=== PATIENT | female | born 1990 | race Caucasian/White ===

== ENCOUNTER 2017-04-22 18:59 | Outpatient (CLI) | payer OTHER ==
[~2017-04-22] VITALS: Ht 180.3 cm; Wt 126.4 kg
[2017-04-22 19:51] LABS: URINE APPEARANCE CLEAR (CLEAR); URINE BILIRUBIN NEG (NEG); URINE COLOR YELLOW; URINE EPITHELIAL CELL AUTO 20-30 /lpf (0-5); URINE NITRITE NEG (NEG); URINE PH 5.5 (4.5-7.5); URINE SPECIFIC GRAVITY 1.018 (1.000-1.030); UROBILINOGEN NEG (NEG)
[2017-04-22 19:56] LABS: MANUAL MICROSCOPIC REQUIRED? NO; REVIEW REQ? NO
[2017-04-22 20:05] LABS: HEMATOCRIT 34.6 % (37-47); MEAN CELL VOLUME 87.4 fL (80-100); MEAN CORPUSCULAR HEMOGLOBIN 29.3 pg (25-34); MEAN PLATELET VOLUME 10.9 fL (7.4-10.4); PLATELET COUNT 194 K/uL (130-400); RED BLOOD COUNT 3.96 M/uL (4.2-5.4); WHITE BLOOD COUNT 13.43 K/uL (4.8-10.8)
[2017-04-22 20:09] LABS: MEAN CORPUSCULAR HGB CONC 33.5 g/dl (32-36)
[2017-04-22 20:17] LABS: URINE TOTAL PROTEIN 7.2 mg/dl (0-11.9)
[2017-04-22 20:19] LABS: ALT/SGPT 10 U/L (12-78); AST/SGOT 10 U/L (15-37); CREATININE 0.62 mg/dl (0.60-1.20)
[2017-04-22 20:32] LABS: URIC ACID 5.3 mg/dl (2.6-7.2)
[2017-04-22 20:45] LABS: URINE PROTIEN/CREAT RATIO 0.1 (0-0.2)
[2017-04-22] MEDS ORDERED: PRENTAB26 PO (20:57)
[2017-04-22] MEDS ORDERED: VALA500T60 PO (20:57)
[2017-04-22 21:02] LABS: BENZODIAZEPINE, URINE NEG (NEG); COCAINE,URINE NEG (NEG); PHENCYCLIDINE, URINE NEG (NEG)
--- NOTE | 2017-04-22 21:09 | Discharge Instructions ---
Discharge Instructions Date of Service Apr 22, 2017. Admission Reason for Admission: Check Labor Discharge Discharge Diagnosis / Problem: with limited care Discharge Goals Goal(s): Continuing OB care Activity Recommendations Activity Limitations: resume your previous activity . Instructions / Follow-Up Instructions / Follow-Up Call the [facility] – [place] office on Monday morning early (9:00am or thereabouts) at . Please ask for an appointment in the next week. Current Hospital Diet Patient's current hospital diet: Regular OB Diet Discharge Diet Recommended Diet: Regular Diet Pending Studies Studies pending at discharge: no Laboratory Results Test 04/22/17 19:25 04/22/17 19:50 04/22/17 20:33 04/22/17 21:05 Urine Color YELLOW Urine Appearance CLEAR Urine pH 5.5 Urine Specific [place] 1.018 Urine Protein NEG Urine Glucose (UA) NEG Urine Ketones NEG Urine Occult Blood 2+ Urine Nitrite NEG Urine Bilirubin NEG Urine Urobilinogen NEG Urine Leukocyte Esterase NEG Urine WBC (Auto) 1-5 Urine RBC (Auto) 5-10 Urine Hyaline Casts (Auto) 1-5 Urine Epithelial Cells (Auto) 20-30 Urine Bacteria (Auto) NEG Urine Random Creatinine 74.0 Urine Random Total Protein 7.2 Urine Protein/Creatinine Ratio 0.1 Urine Opiates Screen NEG Urine Methadone, Qualitative NEG Urine Barbiturates NEG Urine Phencyclidine (PCP) Level NEG Ur Amphetamine/Methamphetamine NEG MDMA (Ecstasy) Screen NEG Urine Benzodiazepines Screen NEG Urine Cocaine Metabolite NEG Urine Marijuana (THC) NEG White Blood Count 13.43 Red Blood Count 3.96 Hemoglobin 11.6 Hematocrit 34.6 Mean Corpuscular Volume 87.4 Mean Corpuscular Hemoglobin 29.3 Mean Corpuscular Hemoglobin Concent 33.5 RDW Standard Deviation 44.6 RDW Coefficient of Variation 13.9 Platelet Count 194 Mean Platelet Volume 10.9 Creatinine 0.62 Estimated GFR () 144.2 Estimated GFR (Non- 124.4 Uric Acid 5.3 Aspartate Amino Transferase (AST) 10 Alanine Aminotransferase (ALT) 10 Lactate Dehydrogenase 150 Thyroid Stimulating Hormone (TSH) Pending Chlamydia trachomatis RNA Pending Neisseria gonorrhoeae RNA Pending Rapid Plasma Reagin Pending Hepatitis B Surface Antigen Pending HIV (1&2) Ab and P24 Ag, 4th Gener Pending Rubella IgG Antibody Pending Medical Emergencies . Who to Call and When: Medical Emergencies: If at any time you feel your situation is an emergency, please call 911 immediately. . Non-Emergent Contact Non-Emergency issues call your: Primary Care Provider . . "Provider Documentation" section prepared by Faith Solis. . VTE Core Measure Inpt VTE Proph given/why not?: Treatment not indicated
[2017-04-22 21:32] VITALS: Ht 180.3 cm; Wt 126.4 kg
[2017-04-26 00:44] LABS: CHLAMYDIA TRACH RNA*** NOT DETECTED (NOT DETECTED); GC (NEIS GONORRHOEAE)RNA** NOT DETECTED (NOT DETECTED)
== END 2017-04-22 21:20 | disposition home or self-care (01) ==
LOC: C.OPB 18:59 → C.LD 18:59 → C.OPB 21:20
PROVIDERS: ATTEND Obstetrics & Gynecology
DX: O09.33 Supervision of pregnancy with insufficient antenatal care, third trimester (principal); O99.283 Endocrine, nutritional and metabolic diseases complicating pregnancy, third trimester; E03.9 Hypothyroidism, unspecified; O99.213 Obesity complicating pregnancy, third trimester; Z3A.39 39 weeks gestation of pregnancy

== ENCOUNTER 2017-04-28 11:40 | Outpatient (CLI) | payer OTHER ==
[~2017-04-28 11:40] MED LIST: PRENTAB26 PO; VALA500T60 PO
== END 2017-04-28 12:45 | disposition short-term general hospital (02) ==
LOC: C.LD 11:40 → C.OPB 11:40
PROVIDERS: ATTEND Obstetrics & Gynecology
DX: O36.8990 Maternal care for other specified fetal problems, unspecified trimester, not applicable or unspecified (principal); Z3A.00 Weeks of gestation of pregnancy not specified

== ENCOUNTER → 2017-07-27 | Outpatient (CLI) | payer OTHER ==
[2017-07-27 18:00] LABS: BASO % 0.3 %; BASO ABS # 0.03 K/uL (0-0.2); EOS % 2.4 %; EOS ABS # 0.28 K/uL (0-0.5); HEMATOCRIT 43.1 % (37-47); HEMOGLOBIN 14.3 g/dL (12.0-16.0); IG# 0.03 K/uL (0.00-0.02); LYMPH ABS # 3.71 K/uL (1.2-3.4); MEAN CELL VOLUME 86.7 fL (80-100); MEAN CORPUSCULAR HEMOGLOBIN 28.8 pg (25-34); MEAN CORPUSCULAR HGB CONC 33.2 g/dl (32-36); MEAN PLATELET VOLUME 11.5 fL (7.4-10.4); MONO % 5.5 %; MONO ABS # 0.64 K/uL (0.11-0.59); NEUT % 59.5 %; NEUT ABS # 6.89 K/uL (1.4-6.5); PLATELET COUNT 275 K/uL (130-400); RED CELL DISTRIBUTION WIDTH CV 13.9 % (11.5-14.5); RED CELL DISTRIBUTION WIDTH SD 43.8 fL (36.4-46.3); WHITE BLOOD COUNT 11.58 K/uL (4.8-10.8)
[2017-07-27 18:30] LABS: BLOOD UREA NITROGEN 10 mg/dl (7-18); CARBON DIOXIDE 25 mmol/L (21-32); CREATININE 0.73 mg/dl (0.60-1.20); GLUCOSE 93 mg/dl (70-99); SODIUM 137 mmol/L (136-145)
== END | disposition home or self-care (01) ==
LOC: C.LABPVFM 14:10
PROVIDERS: ATTEND Family Medicine
DX: F17.200 Nicotine dependence, unspecified, uncomplicated (principal)

== ENCOUNTER 2017-10-30 03:00 | Emergency (ER) | payer OTHER ==
[~2017-10-30] VITALS: Ht 180.3 cm; Wt 130.5 kg
[2017-10-30 03:02] VITALS: TEMP 36.8; Ht 180.3 cm; Wt 130.5 kg
[2017-10-30] MEDS ORDERED: PROCHLORPERAZINE 5 MG/ML 2 ML VIAL IV STA (03:25)
[2017-10-30] MEDS ORDERED: DiphenhydrAMINE HCL 50 MG/ML VIAL IV STA (03:25)
[2017-10-30] MEDS ORDERED: ACETAMINOPHEN IV 1,000 MG in EMPTY BAG 0 ML IV ONE (03:30)
[2017-10-30] MEDS ORDERED: ACETAMINOPHEN 1000 MG/100 ML IV IV ONE (03:31)
[2017-10-30] MEDS ORDERED: MULT-726 PO (03:44)
[2017-10-30] MEDS ORDERED: OPTIRAY 320 IV PRN (03:45)
[2017-10-30 03:50] LABS: BASO % 0.2 %; BASO ABS # 0.03 K/uL (0-0.2); EOS % 1.6 %; EOS ABS # 0.27 K/uL (0-0.5); HEMATOCRIT 42.8 % (37-47); HEMOGLOBIN 14.1 g/dL (12.0-16.0); IG# 0.04 K/uL (0.00-0.02); LYMPH % 21.6 %; LYMPH ABS # 3.56 K/uL (1.2-3.4); MEAN CELL VOLUME 82.1 fL (80-100); MEAN CORPUSCULAR HEMOGLOBIN 27.1 pg (25-34); MEAN CORPUSCULAR HGB CONC 32.9 g/dl (32-36); MEAN PLATELET VOLUME 10.6 fL (7.4-10.4); MONO % 7.3 %; NEUT % 69.1 %; NEUT ABS # 11.38 K/uL (1.4-6.5); PLATELET COUNT 312 K/uL (130-400); RED CELL DISTRIBUTION WIDTH SD 42.2 fL (36.4-46.3); WHITE BLOOD COUNT 16.48 K/uL (4.8-10.8)
[2017-10-30 04:08] LABS: ALBUMIN 3.7 gm/dl (3.4-5.0); CALCIUM 9.1 mg/dl (8.5-10.1); CREATININE 0.86 mg/dl (0.60-1.20); POTASSIUM 3.6 mmol/L (3.5-5.1)
[2017-10-30 04:11] LABS: TOTAL PROTEIN 7.7 gm/dl (6.4-8.2)
[2017-10-30] MEDS ORDERED: MAGNESIUM CITRATE 296 ML/BTL PO ONE (06:30)
[2017-10-30 06:31] VITALS: BP 143/76; PULSE 88; O2SAT 96
--- NOTE | 2017-10-31 00:22 | EMERGENCY ROOM VISIT NOTE ---
History First contact with patient: 03:10 Chief Complaint: ABDOMINAL PAIN Stated Complaint: ABD PAIN Nursing Triage Summary: Patient reports that she woke with nausea and pain at midnight, pain did not improve and has gotten worse. Patient notes that pain is mid to right abdomen History of Present Illness The patient is a 27 year old female who presents to the Emergency Room with complaints of very umbilical abdominal pain that worsened about 3 hours ago. The patient states the pain does radiate minimally off to the right side of her abdomen. The patient states that she put her child to bed, and went to lay down when her symptoms began. She states that her pain is dull and constant. She is nauseated but has not vomited. The patient does not report fever or chills. No difficulty breathing or discomfort in her chest. She denies chance of . She has not taken anything [id number] for her discomfort which she currently rates a 7/10. Review of Systems More than 10 systems were reviewed and otherwise negative with the exception of history of present illness. Past Medical/Surgical History Medical Problems: (1) Bronchitis (2) Drug abuse (3) cardiac anomaly affecting , antepartum (4) History of - miscarriage Family History No pertinent family history Social History Smoking Status: Current Every Day Smoker Alcohol Use: occasionally Drug Use: other Marital Status: Occupation Status: unemployed Current/Historical Medications Scheduled Multiple Vitamins W/ Minerals (Th[employer] Womens), 1 DOSE PO DAILY Physical Exam Vital Signs Date Time Temp Pulse Resp B/P (MAP) Pulse Ox O2 Delivery O2 Flow Rate FiO2 10/30/17 06:31 88 18 143/76 96 Room Air 10/30/17 05:46 76 18 115/72 96 Room Air 10/30/17 04:58 71 17 122/67 97 Room Air 10/30/17 03:02 36.8 89 18 143/99 98 Room Air Physical Exam VITALS: Vitals are noted on the nurse's note and reviewed by myself. Vital signs stable. GENERAL: Well-developed, well-nourished, white female, who is in no acute distress and resting comfortably. Patient is cooperative with the examination. MOUTH: Mucous membranes moist. Tonsils are not enlarged. Pharynx without erythema, blood, or exudate. Uvula midline. Airway patent. NECK: Supple without nuchal rigidity. No lymphadenopathy. No thyromegaly. Cervical spine is nontender. HEART: Regular rate and rhythm without murmurs gallops or rubs. LUNGS: Clear to auscultation bilaterally without wheezes, rales or rhonchi. No retractions or accessory muscle use. ABDOMEN: Positive normal bowel sounds x 4. Soft with mild tenderness just to the right of the umbilicus. No rebound or guarding. No CVA tenderness. MUSCULOSKELETAL: No muscle atrophy, erythema, or edema noted. Full range of motion in all extremities. No tenderness to palpation. Medical Decision & Procedures ER Provider Diagnostic Interpretation: Preliminary Findings Only See Final Report For Complete Findings CT ABDOMEN & PELVIS With Contrast: Normal appendix. No small bowel obstruction. No free air or free fluid or fluid collections. Increased fecal burden. Distended stomach with retained gastric contents. No radiopaque gallstones. No pancreatitis or pyelonephritis. No hydronephrosis. Normal caliber abdominal aorta. No adnexal cysts or masses. Laboratory Results 10/30/17 03:40 Red Blood Count 5.21, Mean Corpuscular Volume 82.1, Mean Corpuscular Hemoglobin 27.1, Mean Corpuscular Hemoglobin Concent 32.9, Mean Platelet Volume 10.6, Neutrophils (%) (Auto) 69.1, Lymphocytes (%) (Auto) 21.6, Monocytes (%) (Auto) 7.3, Eosinophils (%) (Auto) 1.6, Basophils (%) (Auto) 0.2, Neutrophils # (Auto) 11.38, Lymphocytes # (Auto) 3.56, Monocytes # (Auto) 1.20, Eosinophils # (Auto) 0.27, Basophils # (Auto) 0.03 10/30/17 03:40 Test 10/30/17 03:30 10/30/17 03:40 Urine Color YELLOW Urine Appearance CLEAR (CLEAR) Urine pH 5.5 (4.5-7.5) Urine Specific [place] 1.024 (1.000-1.030) Urine Protein NEG (NEG) Urine Glucose (UA) NEG (NEG) Urine Ketones NEG (NEG) Urine Occult Blood NEG (NEG) Urine Nitrite NEG (NEG) Urine Bilirubin NEG (NEG) Urine Urobilinogen NEG (NEG) Urine Leukocyte Esterase NEG (NEG) Urine Test NEG (NEG) Urine Opiates Screen NEG (NEG) Urine Methadone, Qualitative NEG (NEG) Urine Barbiturates NEG (NEG) Urine Phencyclidine (PCP) Level NEG (NEG) Ur Amphetamine/Methamphetamine NEG (NEG) MDMA (Ecstasy) Screen NEG (NEG) Urine Benzodiazepines Screen NEG (NEG) Urine Cocaine Metabolite NEG (NEG) Urine Marijuana (THC) NEG (NEG) White Blood Count 16.48 K/uL (4.8-10.8) Red Blood Count 5.21 M/uL (4.2-5.4) Hemoglobin 14.1 g/dL (12.0-16.0) Hematocrit 42.8 % (37-47) Mean Corpuscular Volume 82.1 fL (80-100) Mean Corpuscular Hemoglobin 27.1 pg (25-34) Mean Corpuscular Hemoglobin Concent 32.9 g/dl (32-36) Platelet Count 312 K/uL (130-400) Mean Platelet Volume 10.6 fL (7.4-10.4) Neutrophils (%) (Auto) 69.1 % Lymphocytes (%) (Auto) 21.6 % Monocytes (%) (Auto) 7.3 % Eosinophils (%) (Auto) 1.6 % Basophils (%) (Auto) 0.2 % Neutrophils # (Auto) 11.38 K/uL (1.4-6.5) Lymphocytes # (Auto) 3.56 K/uL (1.2-3.4) Monocytes # (Auto) 1.20 K/uL (0.11-0.59) Eosinophils # (Auto) 0.27 K/uL (0-0.5) Basophils # (Auto) 0.03 K/uL (0-0.2) RDW Standard Deviation 42.2 fL (36.4-46.3) RDW Coefficient of Variation 14.0 % (11.5-14.5) Immature Granulocyte % (Auto) 0.2 % Immature Granulocyte # (Auto) 0.04 K/uL (0.00-0.02) Anion Gap 8.0 mmol/L (3-11) Est Creatinine Clear Calc Drug Dose 146.8 ml/min Estimated GFR () 107.3 Estimated GFR (Non- 92.6 BUN/Creatinine Ratio 24.5 (10-20) Calcium Level 9.1 mg/dl (8.5-10.1) Total Bilirubin 0.4 mg/dl (0.2-1) Aspartate Amino Transf (AST/SGOT) 16 U/L (15-37) Alanine Aminotransferase (ALT/SGPT) 28 U/L (12-78) Alkaline Phosphatase 109 U/L (45-117) Total Protein 7.7 gm/dl (6.4-8.2) Albumin 3.7 gm/dl (3.4-5.0) Globulin 4.0 gm/dl (2.5-4.0) Albumin/Globulin Ratio 0.9 (0.9-2) Lipase 109 U/L (73-393) Medications Administered Medications (Trade) Dose Ordered Sig/Jim Route Start Time Stop Time Status Last Admin Dose Admin Acetaminophen 1000 mg/Empty Bag 100 ml @ 400 mls/hr NOW ONCE IV 10/30/17 03:30 10/30/17 03:44 DC 10/30/17 03:39 400 MLS/HR Diphenhydramine HCl (Benadryl Inj) 50 mg NOW STAT IV 10/30/17 03:25 10/30/17 03:27 DC 10/30/17 03:38 50 MG Prochlorperazine Edisylate (Compazine Inj) 10 mg NOW STAT IV 10/30/17 03:25 10/30/17 03:27 DC 10/30/17 03:38 10 MG Magnesium Citrate (Citrate Of Magnesia Soln) 296 ml NOW ONCE PO 10/30/17 06:30 10/30/17 06:31 DC 10/30/17 06:41 296 ML ED Course Physical exam and history were performed. Nursing notes, EMR, and Medication List were personally reviewed. Patient appears to have right-sided abdominal pain that began acutely tonight. On examination the patient does have some mild right-sided tenderness. IV access was established and labs were obtained. The patient was hydrated and medicated as above. CT scan with IV and oral contrast was started. The patient's blood work is as above and was reviewed. She does have an elevated white blood cell count of greater than 16,000. She does not have a significant anemia or gross electrolyte imbalance. Lipase and transaminases are not diagnostic. Urine is without evidence of infection. She is not . CT scan is as above and reviewed by myself and radiology. The patient does not appear to have an acute surgical abdominal process. She does have a large amount of stool, and this certainly could be contributing to her symptoms. On repeat evaluation the patient was sleeping very comfortably in her ER bed. She had significant improvement of her discomfort after medication and hydration here. I discussed options of care with the patient and did offer an enema as this may be contributing to her symptoms. The patient voiced a preference in trying magnesium citrate at home, which appears reasonable. The patient is to follow very closely with her primary care physician in the next 1- 2 days for recheck. She was otherwise invited back to the ER with any new, worsening, or concerning symptoms. The chart was completed utilizing [employer] Speech Voice Recognition Software. Grammatical errors, random word insertions, pronoun errors, and incomplete sentences are an occasional consequence of this system due to software limitations, ambient noise, and hardware issues. Any formal questions or concerns about the content, text, or information contained within the body of this dictation should be directly addressed to the provider for clarification. . Medical Decision Differential diagnosis: Etiologies such as appendicitis, diverticulitis, PUD, biliary pathology, UTI, pancreatitis, obstruction, mesenteric ischemia, aortic pathology, infections, inflammatory bowel disease, renal colic, as well as others were entertained. Impression Primary Impression: Abdominal pain Additional Impression: Constipation Departure Information Dispostion Home / Self-Care Condition GOOD Forms HOME CARE DOCUMENTATION FORM, IMPORTANT VISIT INFORMATION Patient Instructions My [facility] Additional Instructions You were seen and evaluated today on an emergency basis only. This is not a substitute for, or an effort to provide, complete comprehensive medical care. It is not possible to recognize and treat all injuries or illnesses in a single emergency department visit. For this reason it is recommended that you followup with your primary care physician in the next 1-2 days for recheck. Drink plenty of fluids and remain well-hydrated. Consider using magnesium citrate at home today. Drink the bottle over the course of 1 hour. This will help produce a bowel movement. You should be taking a daily stool softener such as Colace You are welcome to return to the emergency department anytime with new, worsening, or concerning symptoms. Problem Qualifiers
--- NOTE | 2017-10-31 07:16 | DIAGNOSTIC IMAGING REPORT ---
CT ABD/PELVIS IV AND ORAL CONT CLINICAL HISTORY: Right-sided abdominal pain, nausea, vomiting. COMPARISON STUDY: 10/07/2012 TECHNIQUE: Following the IV administration of 93 mL of [id number]-320, CT scan of the abdomen and pelvis was performed from the lung bases to the proximal femurs. Images are reviewed in the axial, sagittal, and coronal planes. IV contrast was administered without complication. A dose lowering technique was utilized adhering to the principles of ALARA. CT DOSE: 1606.87 mGy.cm FINDINGS: Lower chest: The heart is normal in size and configuration, without pericardial effusion. The lung bases and pleural spaces are clear. Liver: The contrast-enhanced liver is normal in size, contour, and attenuation. There is no intrahepatic biliary ductal dilatation. The hepatic veins and portal veins are patent. Gallbladder: Unremarkable. Spleen: Spleen is mildly enlarged measuring 14.6 cm. Pancreas: Unremarkable. Adrenal glands: Unremarkable. Kidneys: There is symmetric renal cortical enhancement. The kidneys are normal in size without hydronephrosis. Bowel: There are no transition zones indicate bowel obstruction. There is no evidence of acute diverticulitis. The appendix is felt to be normal. Peritoneum: There is no intraperitoneal free air or abdominal ascites. Vasculature: The abdominal aorta is normal in course and caliber. Adenopathy: There are a few mildly prominent ileocolic lymph nodes, likely reactive. Pelvic viscera: The bladder, and pelvic viscera are unremarkable. There is a right pelvic basin calcification likely representing a phlebolith given the lack of associated hydroureter. Skeletal structures: No destructive osseous lesions are seen. IMPRESSION: 1. No evidence of bowel obstruction. No evidence of free air 2. Mild splenomegaly 3. Normal appendix. No evidence of acute diverticulitis. Electronically signed by: Casper Laboy M.D. 10/30/2017 6:34 AM Dictated Date/Time: 10/30/2017 6:29 AM
== END 2017-10-30 06:50 | disposition home or self-care (01) ==
LOC: C.EDB 03:01
DX: K59.00 Constipation, unspecified (principal); D72.829 Elevated white blood cell count, unspecified; F17.200 Nicotine dependence, unspecified, uncomplicated

== ENCOUNTER 2020-04-07 15:38 | Inpatient (IN) ==
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
[2020-04-07 16:18] LABS: Basophils # (auto) 0.01 K/uL (0-0.2); Basophils % (auto) 0.1 %; Eosinophils # (auto) 0.04 K/uL (0-0.5); Eosinophils % (auto) 0.4 %; Hematocrit (blood only) 35.6 % (37-47); Hemoglobin 11.7 g/dL (12.0-16.0); Immature Granulocytes # (auto) 0.04 K/uL (0.00-0.02); Immature Granulocytes % (auto) 0.4 %; Lymphocytes % (auto) 18.2 %; Mean Corpuscular Hemoglobin 27.8 pg (25-34); Mean Corpuscular Hgb Conc 32.9 g/dL (32-36); Mean Corpuscular Volume 84.6 fL (80-100); Mean Platelet Volume 10.8 fL (7.4-10.4); Monocytes # (auto) 0.67 K/uL (0.11-0.59); Monocytes % (auto) 6.1 %; Neutrophils # (auto) 8.24 K/uL (1.4-6.5); Neutrophils % (auto) 74.8 %; Platelet Count 223 K/uL (130-400); RDW Coefficient of Variation 14.9 % (11.5-14.5); RDW Standard Deviation 45.8 fL (36.4-46.3); Red Blood Count 4.21 M/uL (4.2-5.4)
[2020-04-07 16:30] LABS: Appearance Urine Clear (Clear); Bacteria Urine Automated 1+ (Negative); Bilirubin Urine Negative (Negative); Blood Urine Negative (Negative); Color Urine Dark Yellow; Epithelial Cell Urine Auto >30 /lpf (0-5); Glucose Urine UA Negative (Negative); Ketones Urine Trace (Negative); Leukocyte Esterase Urine Trace (Negative); Nitrite Urine Negative (Negative); Protein Urine Negative (Negative); RBC Urine Automated 0-4 /hpf (0-4); Specific Gravity Urine 1.024 (1.000-1.030); Urobilinogen Urine Negative (Negative)
[2020-04-07 16:34] LABS: Alanine Aminotransferase 11 U/L (12-78); Albumin Level 2.7 gm/dl (3.4-5.0); Aspartate Aminotransferase 11 U/L (15-37); BUN Creatinine Ratio 10.5 (10-20); Blood Urea Nitrogen 7 mg/dl (7-18); Calcium 9.4 mg/dl (8.5-10.1); Carbon Dioxide 19 mmol/L (21-32); Chloride 108 mmol/L (98-107); Est GFR (African American) 137.7; Est GFR (Non-African American) 118.8; Glucose 114 mg/dl (70-99); Magnesium 1.9 mg/dl (1.8-2.4); Partial Thromboplastin Ratio 0.9; Partial Thromboplastin Time 23.9 Seconds (21.0-31.0); Potassium 3.8 mmol/L (3.5-5.1); Prothrombin Time 10.3 Seconds (9.0-12.0); Sodium 138 mmol/L (136-145)
[2020-04-07 16:40] LABS: Albumin Globulin Ratio 0.6 (0.9-2); Alkaline Phosphatase 83 U/L (45-117); Bilirubin,Total 0.4 mg/dl (0.2-1); Globulin 4.3 gm/dl (2.5-4.0); NT Pro B Type Natriuretic Pept 32 pg/ml (0-450); Troponin I < 0.015 ng/ml (0-0.045)
[2020-04-07 17:08] LABS: D Dimer 1920 ug/L FEU (0-500)
[2020-04-07] MEDS ORDERED: ACETAMINOPHEN 500 MG TAB PO STA (17:31)
--- NOTE | 2020-04-07 18:10 | Ultrasound Report ---
ULTRASOUND BILATERAL LOWER EXTREMITY VENOUS CLINICAL HISTORY: Elevated d-dimer. COMPARISON STUDY: Bilateral lower extremity venous ultrasound dated 03/10/2011. TECHNIQUE: Real-time, grayscale, and color Doppler sonography of the deep veins of the right and left lower extremity was performed from the inguinal crease to the calf. Compression and augmentation wer e utilized. FINDINGS: There is no sonographic evidence of deep venous thrombosis identified in the right or left lower extremity. The common femoral, superficial femoral, and popliteal veins are patent and normally compressible bilaterally. The greater saphenous vein and the profunda femoris vein at the junction w ith the common femoral vein are clear in both legs. The visualized calf veins are patent bilaterally. IMPRESSION: There is no sonographic evidence of deep venous thrombosis identified in the right or lef t lower extremity. ACT 112: Negative or not required by law. Electronically signed by: Lucian Dutton M.D. 04/07/2020 6:09 PM
[2020-04-07] MEDS ORDERED: OPTIRAY 320 125ml IV ONE (18:19)
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
--- NOTE | 2020-04-07 20:17 | CT Scan Report ---
CT ANGIOGRAM OF THE CHEST CLINICAL HISTORY: Dyspnea. . Elevated d-dimer. COMPARISON STUDY: Chest x-ray dated 03/27/2018. Chest CT dated 10/06/2012. TECHNIQUE: Following the IV administration of 119 cc of Optiray 320, CT angiogram of the chest was pe rformed from the upper abdomen to the thoracic inlet utilizing the pulmonary embolus protocol. Images are reviewed in the axial, sagittal, and coronal planes. 3-D MIPS images are created and assessed. I V contrast was administered without complication. A dose lowering technique was utilized adhering to the principles of ALARA. The patient was scanned while as deemed medically necessary by the referring clinician. CT DOSE: 936.86 mGy.cm FINDINGS: Thyroid: Imaged portions of the thyroid gland are normal in size and attenuation. Thoracic aorta: The thoracic aorta is normal in caliber and demonstrates standard 3-vessel arch anato my. No dissection is seen. Pulmonary vasculature: The pulmonary trunk is normal in caliber. There is no contrast opacification o f the pulmonary arteries. Pulmonary embolus cannot be excluded. Heart: The heart is normal in size and without pericardial effusion. Lungs and pleural spaces: The lungs and pleural spaces are clear. Mediastinum: There is no mediastinal lymphadenopathy. Anushka: Clear. Axillae: There is no axillary lymphadenopathy. Upper abdomen: Partially visualized upper abdominal viscera is within normal limits. Skeletal structures: No lytic or blastic bony lesions are seen. IMPRESSION: 1. There is no contrast opacification of the pulmonary arteries. Pulmonary embolus cannot be excluded . 2. The lungs are clear. ACT 112: Negative or not required by law. Electronically signed by: Lucian Dutton M.D. 04/07/2020 8:16 PM
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
[2020-04-08] MEDS ORDERED: GLUCOSE 10 TABS/TUBE PO PRN (00:31)
[2020-04-08] MEDS ORDERED: DEXTROSE 50% 50 ML SYRINGE IV PRN (00:31)
[2020-04-08] MEDS ORDERED: GLUCAGON FOR INJ 1 MG VIAL SQ PRN (00:31)
[2020-04-08] MEDS ORDERED: GLUCOSE 40% GEL 15 GM TUBE PO PRN (00:31)
[2020-04-08] MEDS ORDERED: ACETAMINOPHEN 500 MG TAB PO PRN (00:31)
[2020-04-08] MEDS ORDERED: CARBOHYDRATES FOR HYPOGLYCEMIA PO PRN (00:31)
--- NOTE | 2020-04-08 06:14 | Electrocardiogram Report ---
Test Reason : Blood Pressure : / mmHG Vent. Rate : 096 BPM Atrial Rate : 096 BPM P-R Int : 150 ms QRS Dur : 082 ms QT Int : 344 ms P-R-T Axes : 052 008 038 degrees QTc Int : 434 ms Poor data quality, interpretation may be adversely affected Normal sinus rhythm Normal ECG When compared with ECG of 14-JUN-2019 13:56, Questionable change in QRS axis Confirmed by Joel Dumas ([id number]) on 04/08/2020 6:14:15 AM Referred By: ER Confirmed By:Joel Dumas
--- NOTE | 2020-04-08 08:25 | Obstetrical Progress Note ---
Date of Service Patient feels well this morning she's having no contractions no leakage of fluid she is not having any obstetrical concern she states hepatient feels well this morning she's having no contractions no leakage of fluid she is not having any obstetrical concern she states her baby is active nonstress test are being done every four hoursr baby I spoke with Dr. Farr we discussed possibly repeating ct scan I will obviously leave that judgment up to the medical team at this stage, as we have not ruled out a pulmonary embolus will continue to monitor her mother and baby from an aesthetic standpoint April 08, 2020 Assessment & Plan Admission and Anticipated Discharge Date Admission Date: April 07, 2020 Results & Data ([facility]) Vital Signs (Past 12 Hours) Vital Signs Temp Pulse Pulse Resp BP BP BP 04/08/20 07:53 98.4 F 95 H 18 138/85 04/08/20 03:31 98.2 F 90 20 131/76 04/08/20 00:18 92 H 04/08/20 00:16 97.9 F 103 H 22 139/87 04/07/20 23:56 102 H 25 H 130/80 04/07/20 23:00 102 H 25 H 04/07/20 22:30 101 H 25 H 04/07/20 22:00 102 H 25 H 04/07/20 21:34 101 H 04/07/20 21:00 93 H 18 04/07/20 20:40 101 H 19 Pulse Ox 04/08/20 07:53 99 04/08/20 03:31 96 04/08/20 00:18 04/08/20 00:16 96 04/07/20 23:56 98 04/07/20 23:00 04/07/20 22:30 04/07/20 22:00 04/07/20 21:34 04/07/20 21:00 04/07/20 20:40 PG Care Time/CCT Total # of Minutes Spent Total Time Spent with Patient: Total time spent is greater than 50% in coordination of care (as documented) at patient's floor/unit and/or counseling patient: Coding Level of Care Code None
[2020-04-08 08:44] LABS: Basophils # (auto) 0.01 K/uL (0-0.2); Basophils % (auto) 0.1 %; Eosinophils # (auto) 0.06 K/uL (0-0.5); Eosinophils % (auto) 0.5 %; Hematocrit (blood only) 35.8 % (37-47); Hemoglobin 11.4 g/dL (12.0-16.0); Immature Granulocytes # (auto) 0.04 K/uL (0.00-0.02); Immature Granulocytes % (auto) 0.4 %; Lymphocytes # (auto) 2.61 K/uL (1.2-3.4); Lymphocytes % (auto) 23.6 %; Mean Corpuscular Hemoglobin 27.3 pg (25-34); Mean Corpuscular Hgb Conc 31.8 g/dL (32-36); Mean Corpuscular Volume 85.6 fL (80-100); Mean Platelet Volume 11.1 fL (7.4-10.4); Monocytes % (auto) 5.4 %; Neutrophils # (auto) 7.73 K/uL (1.4-6.5); Platelet Count 201 K/uL (130-400); RDW Coefficient of Variation 15.1 % (11.5-14.5); RDW Standard Deviation 46.8 fL (36.4-46.3); Red Blood Count 4.18 M/uL (4.2-5.4); White Blood Count 11.05 K/uL (4.8-10.8)
[2020-04-08] MEDS ORDERED: PRENATAL VITAMIN 1 TAB PO SCH (09:00)
[2020-04-08 09:05] LABS: Partial Thromboplastin Ratio 0.9; Partial Thromboplastin Time 26.5 Seconds (21.0-31.0); Prothrombin Time 10.5 Seconds (9.0-12.0)
[2020-04-08 09:09] LABS: Albumin Level 2.5 gm/dl (3.4-5.0); Aspartate Aminotransferase 10 U/L (15-37); BUN Creatinine Ratio 10.6 (10-20); Blood Urea Nitrogen 7 mg/dl (7-18); Calcium 9.2 mg/dl (8.5-10.1); Carbon Dioxide 20 mmol/L (21-32); Chloride 108 mmol/L (98-107); Creatinine Clr Calc Pharmacy 204.6 ml/min; Est GFR (African American) 139.8; Est GFR (Non-African American) 120.6; Glucose 114 mg/dl (70-99); Magnesium 1.8 mg/dl (1.8-2.4); Potassium 3.5 mmol/L (3.5-5.1); Sodium 139 mmol/L (136-145)
[2020-04-08 09:14] LABS: Alanine Aminotransferase 10 U/L (12-78); Albumin Globulin Ratio 0.6 (0.9-2); Alkaline Phosphatase 76 U/L (45-117); Bilirubin,Total 0.3 mg/dl (0.2-1); Globulin 4.2 gm/dl (2.5-4.0); Total Protein 6.7 gm/dl (6.4-8.2); Troponin I < 0.015 ng/ml (0-0.045)
[2020-04-08] MEDS: INSULIN ASPART 100 UNITS/ML 3 ML PEN SC SCH ×3 (10:04→16:55)
[2020-04-08] MEDS: VALACYCLOVIR HCL 500 MG TABLET PO SCH (10:32)
[2020-04-08] MEDS ORDERED: SOD PHOSPHATE/SOD BIPHOSPHATE ENEMA 132 ML BTL PR STA (10:53)
[2020-04-08] MEDS ORDERED: SODIUM CHLORIDE 0.9% 500 ML IV SCH (12:00)
[2020-04-08] MEDS ORDERED: OPTIRAY 320 125ml IV ONE (12:48)
--- NOTE | 2020-04-08 12:51 | XCELERA ---
[id number] \\[id number]
--- NOTE | 2020-04-08 13:32 | Communication Note ---
Date of Service: April 08, 2020 I saw Holly in clinic yesterday, and referred her to hospital. I have reviewed the course of her ER care, admission, and discussed her with Dr. Presley upon assuming her care at 0830 today. I have watched her chart through the day. I have discussed her with Dr. Farr just now. Essentially Holly was sent here for HTN with SOB, and workup found no preeclampsia but did include a D-Dimer checked by the ER and found to be elevated. This triggered workup for DVT/PE/Cardiomyopathy. She has been admitted to PCU for telemetry and the aforementioned testing. Her EKG has been normal. Her ECHO was normal today. Her troponin has never elevated. Her LE Dopplers were negative for any DVT. Attempts x2 at CT PE protocol have now been unsuccessful in fully visualizing the pulmonary vasculature and therefore has been unable to completely r/o out PE. Discussion with Dr. Farr by phone, during which he reveals he is "not truly concerned" for PE at this time given the elevation in D-Dimer that is expected in , the normal studies already done, the lack of desaturation, and the patient's relative comfort. He does not feel any additio nal studies are merited at this time for the purpose of PE workup. In fact, discharge planning was in progress per my review of the chart, and the patient also notes she was under the impression she would be sent home soon. I discussed with Dr. Farr that I do not feel discharge is appropriate since she has met criteria for gestational hypertension and is indicated for delivery. He is agreeable to her being transferred to L&D for this purpose. I also discussed the case in detail with [facility] at [facility] (including the trends of her vitals, labs, d- dimer value, imaging results) and they feel that the probability of PE is low, that induction for gHTN is indicated, and that it is reasonable to proceed with that here. They suggested that pulse ox monitoring be used during labor which we can and will do.
--- NOTE | 2020-04-08 13:56 | Hospitalist Progress Note ---
Date of Service April 08, 2020 Assessment & Plan (1) Palpitations: Palpitations/shortness of breath/elevated d-dimer/third trimester - Venous Dopplers negative for DVT bilaterally. CT angiography of chest nondiagnostic due to nonopacification of pulmonary arteries. repeated the CTA, still non-diagnostic echocardiogram is normal she is 98% on room air, no tachypnea no concerns that this is pulmonary embolism, elevated D dimer related to safe to transfer up to Labor and Delivery, transfer to Dr. Solis's service, appreciate her assistance (2) SOB (shortness of breath): most likely related to CT chest with no evidence of interstitial lung pathology 98% on room air and no tachypnea should resolve with deliver (3) Third trimester : now with hypertension, SBP [address] Solis, she needs to stay and get induced she has a history of pre-eclampsia (4) Elevated d-dimer: due to venous dopplers negative for DVT Admission and Anticipated Discharge Date Admission Date: April 07, 2020 Subjective patient resting comfortably, no dyspnea, no chest pain reviewed the chart doppler negative for DVT, echocardiogram normal repeated CT angiogram but again the pictures wer poor quality, no dye in the pulmonary arteries 98% on room air, not tachypneic very, very low suspicion for PE spoke with Dr. Solis, due to elevated blood pressure she needs to be induced today will transfer up to labor and delivery on OB service Review of Systems Review of Systems: All systems reviewed & are unremarkable except as noted in Subjective Respiratory: + dyspnea on exertion Cardiovascular: + palpitations Physical Exam Constitutional: WD/WN, vitals as above Eyes: PERRL, conjunctivae normal, anicteric sclerae ENMT: external ear and nose normal, oropharynx normal Neck: trachea midline, no thyromegaly Respiratory: normal respiratory effort, lungs clear to auscultation Cardiovascular: RRR, no murmur, no edema Gastrointestinal (Abdomen): normal bowel sounds, soft, nontender, no hepatosplenomegaly (38 weeks gestation) Musculoskeletal: no cyanosis or clubbing, extremities motor strength 5/5 Skin: no rashes, warm and dry Neurologic: patellar DTR's 2+ bilat, sensation intact and PERRL, EOMI, accommodation nl, no face palsy, no dysarthria Psychiatric: A+Ox3, euthymic affect Lymphatic: no cervical or axillary lymphadenopathy Results & Data Results & Data ([facility]) Vital Signs (Past 12 Hours) Vital Signs Temp Pulse Pulse Resp BP BP Pulse Ox 04/08/20 11:09 36.7 C 85 20 161/91 H 98 04/08/20 08:00 86 04/08/20 07:53 36.9 C 95 H 18 138/85 99 04/08/20 03:31 36.8 C 90 20 131/76 96 Laboratory Results Laboratory Results - last 24 hr 04/07/20 04/07/20 04/07/20 16:08 16:08 16:08 WBC 11.00 H RBC 4.21 Hgb 11.7 L Hct 35.6 L MCV 84.6 MCH 27.8 MCHC 32.9 RDW Std Deviation 45.8 RDW Coeff of Pablo 14.9 H Plt Count 223 MPV 10.8 H Immature Gran % (Auto) 0.4 Neut % (Auto) 74.8 Lymph % (Auto) 18.2 Peach % (Auto) 6.1 Eos % (Auto) 0.4 Baso % (Auto) 0.1 Neut # (Auto) 8.24 H Lymph # (Auto) 2.00 Peach # (Auto) 0.67 H Eos # (Auto) 0.04 Baso # (Auto) 0.01 Immature Gran # (Auto) 0.04 H PT 10.3 INR 1.0 APTT 23.9 PTT Ratio 0.9 D-Dimer 1920 H* Sodium 138 Potassium 3.8 Chloride 108 H Carbon Dioxide 19 L Anion Gap 11.0 BUN 7 Creatinine 0.67 Est Cr Clr Drug Dosing Not Reportable Est GFR ( Amer) 137.7 Est GFR (Non-Af Amer) 118.8 BUN/Creatinine Ratio 10.5 Glucose 114 H POC Glucose Calcium 9.4 Magnesium 1.9 Total Bilirubin 0.4 AST 11 L ALT 11 L Alkaline Phosphatase 83 Troponin I < 0.015 NT-Pro-B Natriuret Pep 32 Total Protein 7.0 Albumin 2.7 L Globulin 4.3 H Albumin/Globulin Ratio 0.6 L Urine Color Urine Appearance Urine pH Ur Specific Dozier Urine Protein Urine Glucose (UA) Urine Ketones Urine Blood Urine Nitrite Urine Bilirubin Urine Urobilinogen Ur Leukocyte Esterase Urine WBC (Auto) Urine RBC (Auto) U Hyaline Cast (Auto) U Epithel Cells (Auto) Urine Bacteria (Auto) COVID-19 Eval Order COVID-19 PCR 04/07/20 04/07/20 04/07/20 16:15 19:50 19:50 WBC RBC Hgb Hct MCV MCH MCHC RDW Std Deviation RDW Coeff of Pablo Plt Count MPV Immature Gran % (Auto) Neut % (Auto) Lymph % (Auto) Peach % (Auto) Eos % (Auto) Baso % (Auto) Neut # (Auto) Lymph # (Auto) Peach # (Auto) Eos # (Auto) Baso # (Auto) Immature Gran # (Auto) PT INR APTT PTT Ratio D-Dimer Sodium Potassium Chloride Carbon Dioxide Anion Gap BUN Creatinine Est Cr Clr Drug Dosing Est GFR ( Amer) Est GFR (Non-Af Amer) BUN/Creatinine Ratio Glucose POC Glucose Calcium Magnesium Total Bilirubin AST ALT Alkaline Phosphatase Troponin I NT-Pro-B Natriuret Pep Total Protein Albumin Globulin Albumin/Globulin Ratio Urine Color Dark Yellow Urine Appearance Clear Urine pH 7.0 Ur Specific Dozier 1.024 Urine Protein Negative Urine Glucose (UA) Negative Urine Ketones Trace H Urine Blood Negative Urine Nitrite Negative Urine Bilirubin Negative Urine Urobilinogen Negative Ur Leukocyte Esterase Trace H Urine WBC (Auto) 1-5 Urine RBC (Auto) 0-4 U Hyaline Cast (Auto) 1-5 U Epithel Cells (Auto) >30 H Urine Bacteria (Auto) 1+ H COVID-19 Eval Order Covid19 Done at [facility] COVID-19 PCR NEGATIVE 04/08/20 04/08/20 04/08/20 00:51 07:37 08:23 WBC 11.05 H RBC 4.18 L Hgb 11.4 L Hct 35.8 L MCV 85.6 MCH 27.3 MCHC 31.8 L RDW Std Deviation 46.8 H RDW Coeff of Pablo 15.1 H Plt Count 201 MPV 11.1 H Immature Gran % (Auto) 0.4 Neut % (Auto) 70.0 Lymph % (Auto) 23.6 Peach % (Auto) 5.4 Eos % (Auto) 0.5 Baso % (Auto) 0.1 Neut # (Auto) 7.73 H Lymph # (Auto) 2.61 Peach # (Auto) 0.60 H Eos # (Auto) 0.06 Baso # (Auto) 0.01 Immature Gran # (Auto) 0.04 H PT INR APTT PTT Ratio D-Dimer Sodium Potassium Chloride Carbon Dioxide Anion Gap BUN Creatinine Est Cr Clr Drug Dosing Est GFR ( Amer) Est GFR (Non-Af Amer) BUN/Creatinine Ratio Glucose POC Glucose 88 Calcium Magnesium Total Bilirubin AST ALT Alkaline Phosphatase Troponin I < 0.015 NT-Pro-B Natriuret Pep Total Protein Albumin Globulin Albumin/Globulin Ratio Urine Color Urine Appearance Urine pH Ur Specific Dozier Urine Protein Urine Glucose (UA) Urine Ketones Urine Blood Urine Nitrite Urine Bilirubin Urine Urobilinogen Ur Leukocyte Esterase Urine WBC (Auto) Urine RBC (Auto) U Hyaline Cast (Auto) U Epithel Cells (Auto) Urine Bacteria (Auto) COVID-19 Eval Order COVID-19 PCR 04/08/20 04/08/20 04/08/20 08:23 08:23 11:43 WBC RBC Hgb Hct MCV MCH MCHC RDW Std Deviation RDW Coeff of Pablo Plt Count MPV Immature Gran % (Auto) Neut % (Auto) Lymph % (Auto) Peach % (Auto) Eos % (Auto) Baso % (Auto) Neut # (Auto) Lymph # (Auto) Peach # (Auto) Eos # (Auto) Baso # (Auto) Immature Gran # (Auto) PT 10.5 INR 1.0 APTT 26.5 PTT Ratio 0.9 D-Dimer Sodium 139 Potassium 3.5 Chloride 108 H Carbon Dioxide 20 L Anion Gap 11.0 BUN 7 Creatinine 0.64 Est Cr Clr Drug Dosing 204.6 Est GFR ( Amer) 139.8 Est GFR (Non-Af Amer) 120.6 BUN/Creatinine Ratio 10.6 Glucose 114 H POC Glucose 100 H Calcium 9.2 Magnesium 1.8 Total Bilirubin 0.3 AST 10 L ALT 10 L Alkaline Phosphatase 76 Troponin I < 0.015 NT-Pro-B Natriuret Pep Total Protein 6.7 Albumin 2.5 L Globulin 4.2 H Albumin/Globulin Ratio 0.6 L Urine Color Urine Appearance Urine pH Ur Specific Dozier Urine Protein Urine Glucose (UA) Urine Ketones Urine Blood Urine Nitrite Urine Bilirubin Urine Urobilinogen Ur Leukocyte Esterase Urine WBC (Auto) Urine RBC (Auto) U Hyaline Cast (Auto) U Epithel Cells (Auto) Urine Bacteria (Auto) COVID-19 Eval Order COVID-19 PCR Medications Administered Current Inpatient Medications Acetaminophen (Acetaminophen 500 Mg Tab) 1,000 mg PO Q6H PRN PRN Reason: Pain Stop: 05/08/20 00:30 Dextrose (Dextrose 50% 50 Ml Syringe) 25 - 50 ml IV UD PRN; Protocol PRN Reason: Hypoglycemia Protocol Stop: 05/08/20 00:30 Glucagon (Glucagon For Inj 1 Mg Vial) 1 mg SQ UD PRN; Protocol PRN Reason: Hypoglycemia Protocol Stop: 05/08/20 00:30 Glucose (Glucose 10 Tabs/Tube) 4 - 8 tabs PO UD PRN; Protocol PRN Reason: Hypoglycemia Protocol Stop: 05/08/20 00:30 Glucose (Glucose 40% Gel 15 Gm Tube) 15 - 30 gm PO UD PRN; Protocol PRN Reason: Hypoglycemia Protocol Stop: 05/08/20 00:30 Sodium Chloride (Nss) 500 mls @ 125 mls/hr IV .Q4H NARAYAN Stop: 05/08/20 11:59 Insulin Aspart (Insulin Aspart 100 Units/Ml 3 Ml Pen) 0 units SC ACHS NARAYAN Stop: 05/08/20 07:29 Last Admin: 04/08/20 11:49 Dose: Not Given Documented by: Miscellaneous (Carbohydrates For Hypoglycemia ) 15 - 30 gm PO UD PRN PRN Reason: Hypoglycemia Protocol Stop: 05/08/20 00:30 Prenat Multivit/[place]/Iron/Folic Ac ( Vitamin 1 Tab) 1 tab PO DAILY NARAYAN Stop: 05/08/20 08:59 Last Admin: 04/08/20 10:33 Dose: Not Given Documented by: Valacyclovir HCl (Valacyclovir Hcl 500 Mg Tablet) 500 mg PO DAILY NARAYAN Stop: 05/08/20 08:59 Last Admin: 04/08/20 10:32 Dose: 500 mg Documented by: PG Care Time/CCT Total # of Minutes Spent Total Time Spent with Patient: Total time spent is greater than 50% in coordination of care (as documented) at patient's floor/unit and/or counseling patient: Coding Level of Care Code 36470 Subseq Hosp Care Lvl 3 Diagnoses Palpitations R00.2 SOB (shortness of breath) R06.02 Third trimester Z34.93 Elevated d-dimer R79.89
--- NOTE | 2020-04-08 16:44 | CT Scan Report ---
CT ANGIOGRAM OF THE CHEST CLINICAL HISTORY: Dyspnea. . Atypical chest pain. Elevated d-dimer. COMPARISON STUDY: Chest x-ray dated 03/27/2018. Chest CT scans dated 04/07/2020 and 10/06/2012. TECHNIQUE: Following the IV administration of 118 cc of Optiray 320, CT angiogram of the chest was pe rformed from the upper abdomen to the thoracic inlet utilizing the pulmonary embolus protocol. Images are reviewed in the axial, sagittal, and coronal planes. 3-D MIPS images are created and assessed. I V contrast was administered without complication. A dose lowering technique was utilized adhering to the principles of ALARA. The patient was scanned while as deemed medically necessary by the referring clinician. CT DOSE: 935.10 mGy.cm FINDINGS: Thyroid: Imaged portions of the thyroid gland are normal in size and attenuation. Thoracic aorta: The thoracic aorta is normal in caliber and demonstrates standard 3-vessel arch anato my. No dissection is seen. Pulmonary vasculature: The pulmonary trunk is normal in caliber. There is no contrast opacification o f the pulmonary arteries. Pulmonary embolus cannot be excluded. Heart: The heart is normal in size and without pericardial effusion. Lungs and pleural spaces: Evaluation of the lung parenchyma is modestly degraded by motion artifact. The lungs and pleural spaces are clear. The trachea and central airways are patent. Mediastinum: There is no mediastinal lymphadenopathy. Anushka: Clear. Axillae: There is no axillary lymphadenopathy. Upper abdomen: Partially visualized upper abdominal viscera is within normal limits. Skeletal structures: No lytic or blastic bony lesions are seen. IMPRESSION: 1. There is no contrast opacification of the pulmonary arteries, similar to yesterday's examination. Pulmonary embolus cannot be excluded. 2. The lungs are clear. ACT 112: Negative or not required by law. Electronically signed by: Lucian Dutton M.D. 04/08/2020 4:42 PM
[2020-04-08] MEDS ORDERED: CALCIUM CARBONATE 500 MG CHEWABLE TAB PO PRN (18:57)
--- NOTE | 2020-04-08 18:57 | Labor Progress Brief Note ---
Date of Service April 08, 2020 Subjective Arrived to L&D for IOL due to gHTN. No OB c/o at this time. Feeling comfortable, no significant SOB. No ACEVES, vis change, RUQ pain. Stable edema. Assessment & Plan Admission and Anticipated Discharge Date Admission Date: April 07, 2020 Physical Exam Physical Exam: Cervix cl/th/hi FHT Cat 1 [place] quiet. Attempted to place dao; unable due to cervix so thick and posterior. Will use cytotec instead. Results & Data ([facility]) Vital Signs (Past 12 Hours) Vital Signs Temp Pulse Pulse Resp BP BP BP 04/08/20 18:18 90 125/67 04/08/20 15:12 98.1 F 85 20 109/64 04/08/20 11:09 98.1 F 85 20 161/91 H 04/08/20 08:00 86 04/08/20 07:53 98.4 F 95 H 18 138/85 Pulse Ox 04/08/20 18:18 04/08/20 15:12 98 04/08/20 11:09 98 04/08/20 08:00 04/08/20 07:53 99 Coding Level of Care Code None
[2020-04-08] MEDS ORDERED: miSOPROStoL 50 MCG TAB PO ONE (18:58)
[2020-04-08] MEDS ORDERED: OXYTOCIN 30 UNITS/500 ML BAG IV PRN ×2 (19:30)
[2020-04-08 20:51] LABS: Amphetamines+Metham, Urine Neg (Neg); Barbiturates, Urine Neg (Neg); Benzodiazepine, Urine Neg (Neg); Cocaine, Urine Neg (Neg); MDMA (Ecstacy), Urine Neg (Neg); Methadone, Urine Neg (Neg); Opiate, Urine Neg (Neg); Phencyclidine, Urine Neg (Neg)
[2020-04-08] MEDS: LACTATED RINGER'S 1,000 ML IV PRN (22:10)
--- NOTE | 2020-04-09 00:47 | Labor Progress Brief Note ---
Date of Service April 09, 2020 Subjective Feeling well. No painful ctx but has experienced SROM shortly after cytotec given. Nitrazine + fluid soaked chux per RN. Of note, minimal fluid leakage since then. Assessment & Plan (1) Gestational hypertension without significant proteinuria during in third trimester, antepartum: IOL for gHTN at greater than 37 weeks. Will begin pitocin as I would still be unable to place dao and would be hesitant to re-dose cytotec given SROM. Patient agreeable. Admission and Anticipated Discharge Date Admission Date: April 08, 2020 Physical Exam Physical Exam: Cervix remains thick, posterior and high. Cannot evaluate d ilation well due to poor patient tolerance of exam and very posterior. Trickle of fluid from vagina, appears clear, very small amount. FHT Cat 1 [place] quiet Results & Data ([facility]) Vital Signs (Past 12 Hours) Vital Signs Temp Pulse Pulse Resp BP BP Pulse Ox 04/09/20 00:39 81 97 04/09/20 00:34 87 99 04/09/20 00:29 82 98 04/09/20 00:24 83 99 04/09/20 00:19 90 98 04/09/20 00:13 88 97 04/09/20 00:08 84 98 04/09/20 00:03 90 98 04/08/20 23:58 89 97 04/08/20 23:56 90 118/68 04/08/20 23:53 86 98 04/08/20 23:48 90 98 04/08/20 23:45 98.1 F 18 04/08/20 23:43 105 H 96 04/08/20 23:38 85 98 04/08/20 23:33 88 97 04/08/20 23:28 93 H 99 04/08/20 23:23 94 H 99 04/08/20 23:18 85 98 04/08/20 23:13 86 97 04/08/20 23:08 84 97 04/08/20 23:03 94 H 98 04/08/20 23:00 18 04/08/20 22:58 93 H 98 04/08/20 22:53 96 H 98 04/08/20 22:48 95 H 98 04/08/20 22:44 90 126/59 L 04/08/20 22:43 98 H 97 04/08/20 22:38 100 H 98 04/08/20 22:33 94 H 98 04/08/20 22:28 95 H 99 04/08/20 22:23 97 H 99 04/08/20 22:18 98 H 98 04/08/20 22:13 93 H 99 04/08/20 22:10 97.7 F 88 128/74 04/08/20 22:08 97 H 98 04/08/20 22:03 105 H 98 04/08/20 21:57 92 H 97 04/08/20 21:52 97 H 98 04/08/20 21:47 95 H 98 04/08/20 21:42 92 H 98 04/08/20 21:28 92 H 97 04/08/20 21:23 92 H 97 04/08/20 21:18 91 H 97 04/08/20 21:13 93 H 99 04/08/20 21:08 100 H 98 04/08/20 21:03 99 H 99 04/08/20 20:58 103 H 98 04/08/20 20:53 97 H 98 04/08/20 20:48 94 H 97 04/08/20 20:44 95 H 120/68 04/08/20 20:43 95 H 95 04/08/20 19:25 98 H 114/79 04/08/20 19:19 97.9 F 20 04/08/20 18:18 90 125/67 04/08/20 18:06 98.4 F 04/08/20 15:12 98.1 F 85 20 109/64 98 Coding Level of Care Code None Diagnoses Gestational hypertension without significant proteinuria during in third trimester, antepartum O13.3
--- NOTE | 2020-04-09 05:47 | Electrocardiogram Report ---
Test Reason : Blood Pressure : / mmHG Vent. Rate : 084 BPM Atrial Rate : 084 BPM P-R Int : 172 ms QRS Dur : 086 ms QT Int : 370 ms P-R-T Axes : 038 016 040 degrees QTc Int : 437 ms Normal sinus rhythm Normal ECG When compared with ECG of 07-APR-2020 15:53, No significant change was found Confirmed by Joel Dumas ([id number]) on 04/09/2020 5:47:05 AM Referred By: REFERRED SELF Confirmed By:Joel Dumas
[2020-04-09] MEDS: LACTATED RINGER'S 1,000 ML IV PRN ×3 (07:02→17:01)
--- NOTE | 2020-04-09 08:18 | Labor Progress Brief Note ---
Date of Service April 09, 2020 Subjective Tolerating contrations, not needing epidural yet. No s/sx preeclampsia Assessment & Plan (1) Gestational hypertension without significant proteinuria during in third trimester, antepartum: IOL continues. Not a candidate for dao though cervix might now permit one, because of SROM. Discussed option of using oral cytotec vs continuing pitocin. Plan for now to continue pitocin. Admission and Anticipated Discharge Date Admission Date: April 08, 2020 Physical Exam Physical Exam: FHT Cat 1 [place] Q4-5 Cvx lower and able to examine to the iOs now; ft/th/hi/soft/post. Fluid trickle appears clear Results & Data ([facility]) Vital Signs (Past 12 Hours) Vital Signs Temp Pulse Resp BP Pulse Ox 04/09/20 07:15 98.1 F 88 20 138/72 04/09/20 07:00 89 18 97 04/09/20 06:55 82 96 04/09/20 06:50 85 96 04/09/20 06:45 82 97 04/09/20 06:40 82 97 04/09/20 06:35 86 98 04/09/20 06:30 93 H 18 97 04/09/20 06:25 84 99 04/09/20 06:20 89 98 04/09/20 06:15 93 H 99 04/09/20 06:14 86 18 130/64 04/09/20 06:10 88 99 04/09/20 06:04 79 98 04/09/20 05:59 78 96 04/09/20 05:54 79 96 04/09/20 05:49 78 96 04/09/20 05:44 77 96 04/09/20 05:39 80 96 04/09/20 05:34 78 96 04/09/20 05:30 18 04/09/20 05:29 86 96 04/09/20 05:24 82 95 04/09/20 05:19 80 96 04/09/20 05:14 79 96 04/09/20 05:09 84 95 04/09/20 05:08 98.2 F 82 18 120/73 04/09/20 05:04 82 95 04/09/20 05:03 80 94 04/09/20 04:59 81 95 04/09/20 04:54 81 94 04/09/20 04:50 78 94 04/09/20 04:49 78 94 04/09/20 04:44 80 95 04/09/20 04:39 83 95 04/09/20 04:37 76 94 04/09/20 04:34 82 95 04/09/20 04:30 18 04/09/20 04:29 80 95 04/09/20 04:28 80 94 04/09/20 04:24 80 95 04/09/20 04:22 81 94 04/09/20 04:19 79 95 04/09/20 04:14 78 95 04/09/20 04:13 77 94 04/09/20 04:09 78 95 04/09/20 04:04 78 96 04/09/20 04:03 78 94 04/09/20 04:00 18 04/09/20 03:59 80 96 04/09/20 03:54 81 96 04/09/20 03:49 79 96 04/09/20 03:44 79 97 04/09/20 03:39 80 97 04/09/20 03:34 84 97 04/09/20 03:29 84 96 04/09/20 03:24 84 98 04/09/20 03:23 97.9 F 84 18 117/56 L 04/09/20 03:19 84 97 04/09/20 03:14 85 96 04/09/20 02:48 83 96 04/09/20 02:43 83 96 04/09/20 02:38 83 95 04/09/20 02:33 84 96 04/09/20 02:30 18 04/09/20 02:28 82 96 04/09/20 02:23 89 97 04/09/20 02:18 86 96 04/09/20 02:13 86 98 04/09/20 02:11 98.1 F 81 18 126/61 04/09/20 02:08 82 97 04/09/20 02:03 84 97 04/09/20 01:58 90 97 04/09/20 01:53 82 97 04/09/20 01:48 85 97 04/09/20 01:43 93 H 99 04/09/20 01:36 81 97 04/09/20 01:31 81 98 04/09/20 01:30 18 04/09/20 01:26 83 97 04/09/20 01:21 85 97 04/09/20 01:16 84 97 04/09/20 01:11 88 97 04/09/20 01:06 82 98 04/09/20 01:01 84 97 04/09/20 01:00 18 04/09/20 00:56 87 98 04/09/20 00:49 82 97 04/09/20 00:44 78 98 04/09/20 00:39 81 97 04/09/20 00:34 87 99 04/09/20 00:29 82 98 04/09/20 00:24 83 99 04/09/20 00:19 90 98 04/09/20 00:13 88 97 04/09/20 00:08 84 98 04/09/20 00:03 90 98 04/08/20 23:58 89 97 04/08/20 23:56 90 118/68 04/08/20 23:53 86 98 04/08/20 23:48 90 98 04/08/20 23:45 98.1 F 18 04/08/20 23:43 105 H 96 04/08/20 23:38 85 98 04/08/20 23:33 88 97 04/08/20 23:28 93 H 99 04/08/20 23:23 94 H 99 04/08/20 23:18 85 98 04/08/20 23:13 86 97 04/08/20 23:08 84 97 04/08/20 23:03 94 H 98 04/08/20 23:00 18 04/08/20 22:58 93 H 98 04/08/20 22:53 96 H 98 04/08/20 22:48 95 H 98 04/08/20 22:44 90 126/59 L 04/08/20 22:43 98 H 97 04/08/20 22:38 100 H 98 04/08/20 22:33 94 H 98 04/08/20 22:28 95 H 99 04/08/20 22:23 97 H 99 04/08/20 22:18 98 H 98 04/08/20 22:13 93 H 99 04/08/20 22:10 97.7 F 88 128/74 04/08/20 22:08 97 H 98 04/08/20 22:03 105 H 98 04/08/20 21:57 92 H 97 09/30/20 21:52 97 H 98 04/08/20 21:47 95 H 98 04/08/20 21:42 92 H 98 04/08/20 21:28 92 H 97 04/08/20 21:23 92 H 97 04/08/20 21:18 91 H 97 04/08/20 21:13 93 H 99 04/08/20 21:08 100 H 98 04/08/20 21:03 99 H 99 04/08/20 20:58 103 H 98 04/08/20 20:53 97 H 98 04/08/20 20:48 94 H 97 04/08/20 20:44 95 H 120/68 04/08/20 20:43 95 H 95 Coding Level of Care Code None Diagnoses Gestational hypertension without significant proteinuria during in third trimester, antepartum O13.3
--- NOTE | 2020-04-09 09:07 | Labor Progress Brief Note ---
Date of Service April 09, 2020 Subjective Reason For Note: Routine Evaluation pt aware i am taking over care. apparently had gush of fluid when ambulating to br at 9pm last night, they only nitrazined it and was positive but no fluid at all since. bedside us i just did shows cephalic with fluid preceding the head, ? if really rom. denies visual change, some mild madera. no vb. on pit and feeling some pain with ctx. Assessment & Plan (1) Gestational hypertension without significant proteinuria during in third trimester, antepartum: (2) Supervision of normal intrauterine in multigravida: no evidence of rom, c/w pit, dao placed to aid in ripening. fhts categ 1. Admission and Anticipated Discharge Date Admission Date: April 08, 2020 Physical Exam Constitutional: WD/WN, vitals as above Neurologic: grossly normal Psychiatric: A+Ox3, euthymic affect Genitourinary: Manual OB Exam: + cervical dilation (visually 1cm) OB Exam Monitor Tracing: + external FHT monitor used (140 mod variability), + external uterine monitor used (q5, pit at 11), + category I and + normal FHT variability SSE no pool, neg nitrazine, neg ferning, no evid rom. ring on ant lip, dao placed and 40cc sterile water in balloon, spec removed and dao taped to leg. pt lulú well. Results & Data ([facility]) Vital Signs (Past 12 Hours) Vital Signs Temp Pulse Resp BP Pulse Ox 04/09/20 09:00 84 111/53 L 04/09/20 08:31 88 117/70 04/09/20 07:15 98.1 F 88 20 138/72 04/09/20 07:00 89 18 97 04/09/20 06:55 82 96 04/09/20 06:50 85 96 04/09/20 06:45 82 97 04/09/20 06:40 82 97 04/09/20 06:35 86 98 04/09/20 06:30 93 H 18 97 04/09/20 06:25 84 99 04/09/20 06:20 89 98 04/09/20 06:15 93 H 99 04/09/20 06:14 86 18 130/64 04/09/20 06:10 88 99 04/09/20 06:04 79 98 10/01/20 05:59 78 96 04/09/20 05:54 79 96 04/09/20 05:49 78 96 04/09/20 05:44 77 96 04/09/20 05:39 80 96 04/09/20 05:34 78 96 04/09/20 05:30 18 04/09/20 05:29 86 96 04/09/20 05:24 82 95 04/09/20 05:19 80 96 04/09/20 05:14 79 96 04/09/20 05:09 84 95 04/09/20 05:08 98.2 F 82 18 120/73 04/09/20 05:04 82 95 04/09/20 05:03 80 94 04/09/20 04:59 81 95 04/09/20 04:54 81 94 04/09/20 04:50 78 94 04/09/20 04:49 78 94 04/09/20 04:44 80 95 04/09/20 04:39 83 95 04/09/20 04:37 76 94 04/09/20 04:34 82 95 04/09/20 04:30 18 04/09/20 04:29 80 95 04/09/20 04:28 80 94 04/09/20 04:24 80 95 04/09/20 04:22 81 94 04/09/20 04:19 79 95 04/09/20 04:14 78 95 04/09/20 04:13 77 94 04/09/20 04:09 78 95 04/09/20 04:04 78 96 04/09/20 04:03 78 94 04/09/20 04:00 18 04/09/20 03:59 80 96 04/09/20 03:54 81 96 04/09/20 03:49 79 96 04/09/20 03:44 79 97 04/09/20 03:39 80 97 04/09/20 03:34 84 97 04/09/20 03:29 84 96 04/09/20 03:24 84 98 04/09/20 03:23 97.9 F 84 18 117/56 L 04/09/20 03:19 84 97 04/09/20 03:14 85 96 04/09/20 02:48 83 96 04/09/20 02:43 83 96 04/09/20 02:38 83 95 04/09/20 02:33 84 96 04/09/20 02:30 18 04/09/20 02:28 82 96 04/09/20 02:23 89 97 04/09/20 02:18 86 96 04/09/20 02:13 86 98 04/09/20 02:11 98.1 F 81 18 126/61 04/09/20 02:08 82 97 04/09/20 02:03 84 97 04/09/20 01:58 90 97 04/09/20 01:53 82 97 04/09/20 01:48 85 97 04/09/20 01:43 93 H 99 04/09/20 01:36 81 97 04/09/20 01:31 81 98 04/09/20 01:30 18 04/09/20 01:26 83 97 04/09/20 01:21 85 97 04/09/20 01:16 84 97 04/09/20 01:11 88 97 04/09/20 01:06 82 98 04/09/20 01:01 84 97 04/09/20 01:00 18 04/09/20 00:56 87 98 04/09/20 00:49 82 97 04/09/20 00:44 78 98 04/09/20 00:39 81 97 04/09/20 00:34 87 99 04/09/20 00:29 82 98 04/09/20 00:24 83 99 04/09/20 00:19 90 98 04/09/20 00:13 88 97 04/09/20 00:08 84 98 04/09/20 00:03 90 98 04/08/20 23:58 89 97 04/08/20 23:56 90 118/68 04/08/20 23:53 86 98 04/08/20 23:48 90 98 04/08/20 23:45 98.1 F 18 04/08/20 23:43 105 H 96 04/08/20 23:38 85 98 04/08/20 23:33 88 97 04/08/20 23:28 93 H 99 04/08/20 23:23 94 H 99 04/08/20 23:18 85 98 04/08/20 23:13 86 97 04/08/20 23:08 84 97 04/08/20 23:03 94 H 98 04/08/20 23:00 18 04/08/20 22:58 93 H 98 04/08/20 22:53 96 H 98 04/08/20 22:48 95 H 98 04/08/20 22:44 90 126/59 L 04/08/20 22:43 98 H 97 04/08/20 22:38 100 H 98 04/08/20 22:33 94 H 98 04/08/20 22:28 95 H 99 04/08/20 22:23 97 H 99 04/08/20 22:18 98 H 98 04/08/20 22:13 93 H 99 04/08/20 22:10 97.7 F 88 128/74 04/08/20 22:08 97 H 98 04/08/20 22:03 105 H 98 04/08/20 21:57 92 H 97 04/08/20 21:52 97 H 98 04/08/20 21:47 95 H 98 04/08/20 21:42 92 H 98 04/08/20 21:28 92 H 97 04/08/20 21:23 92 H 97 04/08/20 21:18 91 H 97 04/08/20 21:13 93 H 99 04/08/20 21:08 100 H 98 04/08/20 21:03 99 H 99 Coding Level of Care Code None Diagnoses Gestational hypertension without significant proteinuria during in third trimester, antepartum O13.3 Supervision of normal intrauterine in multigravida Z34.80 CPT Codes Misx Procedure Codes - 54798 Placement of cervical dilator: 19082 Placement of cervical dilator ([id number]) [employer] Miscellaneous Codes Misx Procedure Codes 85859 Placement of cervical dilator
[2020-04-09] MEDS ORDERED: ACETAMINOPHEN 500 MG TAB PO STA (09:21)
[2020-04-09] MEDS ORDERED: ACETAMINOPHEN 500 MG TAB ONE (09:22)
[2020-04-09] MEDS: VALACYCLOVIR HCL 500 MG TABLET PO SCH (09:24)
[2020-04-09] MEDS ORDERED: BUPIVACAINE 0.25% 30 ML VIAL ONE (11:45)
[2020-04-09] MEDS ORDERED: ePHEDrine sulfate 50 MG/ML AMP ONE (11:45)
[2020-04-09] MEDS ORDERED: fentaNYL 2MCG/ML ROPIV 1.25MG/ML 100 ML BAG EPI ONE (11:45)
[2020-04-09] MEDS ORDERED: fentaNYL citrate 100 MCG/2 ML VIAL ONE (11:45)
--- NOTE | 2020-04-09 12:58 | Labor Progress Brief Note ---
Date of Service April 09, 2020 Subjective Reason For Note: Routine Evaluation no with epidural, planned to arom Assessment & Plan (1) Supervision of normal intrauterine in multigravida: (2) Gestational hypertension without significant proteinuria during in third trimester, antepartum: good cx change after dao balloon, will see how arom helps pattern, c/w pit, fhts categ 1. bps noted. Admission and Anticipated Discharge Date Admission Date: April 08, 2020 Physical Exam Constitutional: WD/WN, vitals as above (bp noted, not severe range) Psychiatric: A+Ox3, euthymic affect Genitourinary: Manual OB Exam: + cervical dilation (4), + cervical effacement 50%, + station high and + amniotic fluid (AROM) clear OB Exam Monitor Tracing: + external FHT monitor used (130 mod variability), + external uterine monitor used (q3), + category I and + normal FHT variability Results & Data ([facility]) Vital Signs (Past 12 Hours) Vital Signs Temp Pulse Resp BP Pulse Ox 04/09/20 12:52 82 100 04/09/20 12:50 86 132/99 04/09/20 12:47 85 99 04/09/20 12:44 97 H 117/58 L 04/09/20 12:42 90 99 04/09/20 12:39 90 124/64 04/09/20 12:37 91 H 98 04/09/20 12:35 89 126/58 L 04/09/20 12:32 86 98 04/09/20 12:27 90 125/58 L 98 04/09/20 12:25 95 H 129/61 04/09/20 12:23 86 146/67 H 04/09/20 12:22 95 H 99 04/09/20 12:17 91 H 99 04/09/20 12:12 88 100 04/09/20 12:07 83 99 04/09/20 12:02 83 98 04/09/20 11:57 86 99 04/09/20 11:52 88 100 04/09/20 11:29 98.2 F 83 20 108/58 L 04/09/20 10:03 83 20 111/59 L 04/09/20 09:00 84 111/53 L 04/09/20 08:31 88 117/70 04/09/20 07:15 98.1 F 88 20 138/72 04/09/20 07:00 89 18 97 04/09/20 06:55 82 96 04/09/20 06:50 85 96 04/09/20 06:45 82 97 04/09/20 06:40 82 97 04/09/20 06:35 86 98 04/09/20 06:30 93 H 18 97 04/09/20 06:25 84 99 04/09/20 06:20 89 98 04/09/20 06:15 93 H 99 04/09/20 06:14 86 18 130/64 04/09/20 06:10 88 99 04/09/20 06:04 79 98 04/09/20 05:59 78 96 04/09/20 05:54 79 96 04/09/20 05:49 78 96 04/09/20 05:44 77 96 04/09/20 05:39 80 96 04/09/20 05:34 78 96 04/09/20 05:30 18 04/09/20 05:29 86 96 04/09/20 05:24 82 95 04/09/20 05:19 80 96 04/09/20 05:14 79 96 04/09/20 05:09 84 95 04/09/20 05:08 98.2 F 82 18 120/73 04/09/20 05:04 82 95 04/09/20 05:03 80 94 04/09/20 04:59 81 95 04/09/20 04:54 81 94 04/09/20 04:50 78 94 04/09/20 04:49 78 94 04/09/20 04:44 80 95 04/09/20 04:39 83 95 04/09/20 04:37 76 94 04/09/20 04:34 82 95 04/09/20 04:30 18 04/09/20 04:29 80 95 04/09/20 04:28 80 94 04/09/20 04:24 80 95 04/09/20 04:22 81 94 04/09/20 04:19 79 95 04/09/20 04:14 78 95 04/09/20 04:13 77 94 04/09/20 04:09 78 95 04/09/20 04:04 78 96 04/09/20 04:03 78 94 04/09/20 04:00 18 04/09/20 03:59 80 96 04/09/20 03:54 81 96 04/09/20 03:49 79 96 04/09/20 03:44 79 97 04/09/20 03:39 80 97 04/09/20 03:34 84 97 04/09/20 03:29 84 96 04/09/20 03:24 84 98 04/09/20 03:23 97.9 F 84 18 117/56 L 04/09/20 03:19 84 97 04/09/20 03:14 85 96 04/09/20 02:48 83 96 04/09/20 02:43 83 96 04/09/20 02:38 83 95 04/09/20 02:33 84 96 04/09/20 02:30 18 04/09/20 02:28 82 96 04/09/20 02:23 89 97 04/09/20 02:18 86 96 04/09/20 02:13 86 98 04/09/20 02:11 98.1 F 81 18 126/61 04/09/20 02:08 82 97 04/09/20 02:03 84 97 04/09/20 01:58 90 97 04/09/20 01:53 82 97 04/09/20 01:48 85 97 04/09/20 01:43 93 H 99 04/09/20 01:36 81 97 04/09/20 01:31 81 98 04/09/20 01:30 18 04/09/20 01:26 83 97 04/09/20 01:21 85 97 04/09/20 01:16 84 97 04/09/20 01:11 88 97 04/09/20 01:06 82 98 04/09/20 01:01 84 97 04/09/20 01:00 18 04/09/20 00:56 87 98 Coding Level of Care Code None Diagnoses Supervision of normal intrauterine in multigravida Z34.80 Gestational hypertension without significant proteinuria during in third trimester, antepartum O13.3
[2020-04-09] MEDS ORDERED: fentaNYL 2MCG/ML ROPIV 1.25MG/ML 100 ML BAG EPI PRN (13:43)
[2020-04-09] MEDS ORDERED: ePHEDrine sulfate 50 MG/ML AMP IV PRN (13:43)
[2020-04-09] MEDS ORDERED: NALOXONE HCL 1 MG in SODIUM CHLORIDE 0.9% 1000ML 1,000 ML IV PRN (13:43)
[2020-04-09] MEDS ORDERED: ONDANSETRON INJ 2 MG/ML 2 ML VIAL IV PRN (13:43)
[2020-04-09] MEDS ORDERED: DiphenhydrAMINE HCL 50 MG/ML VIAL IV PRN (13:43)
[2020-04-09] MEDS ORDERED: NALOXONE HCL 0.4 MG/1 ML VIAL/CARP IV PRN (13:43)
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
--- NOTE | 2020-04-09 17:07 | Labor Progress Brief Note ---
Date of Service April 09, 2020 Subjective Reason For Note: Routine Evaluation pt feeling some pressure. Assessment & Plan (1) Gestational hypertension without significant proteinuria during in third trimester, antepartum: (2) Supervision of normal intrauterine in multigravida: bps stable. anticip 2nd stage soon. fhts categ 1. good cx change. enc to breathe with ctx so cx does not swell. has epidural and pushing button, mostly feels rectal pressure. Admission and Anticipated Discharge Date Admission Date: April 08, 2020 Physical Exam Constitutional: WD/WN, vitals as above Genitourinary: Manual OB Exam: + cervical dilation 8 cm, + cervical effacement 100% and + station 0 OB Exam Monitor Tracing: + external FHT monitor used (not traced well), + scalp electrode used (140 mod variability), + external uterine monitor used (q3) and + normal FHT variability Results & Data ([facility]) Vital Signs (Past 12 Hours) Vital Signs Temp Pulse Resp BP Pulse Ox 04/09/20 17:02 85 100 04/09/20 16:57 88 100 04/09/20 16:55 88 109/65 04/09/20 16:52 81 100 04/09/20 16:47 85 100 04/09/20 16:42 88 100 04/09/20 16:41 89 122/71 04/09/20 16:37 102 H 100 04/09/20 16:32 82 100 04/09/20 16:27 79 100 04/09/20 16:26 84 110/59 L 04/09/20 16:22 82 100 04/09/20 16:17 88 100 04/09/20 16:12 84 100 04/09/20 16:10 80 120/61 04/09/20 16:07 76 100 04/09/20 16:02 74 100 04/09/20 15:57 79 99 04/09/20 15:55 81 120/60 04/09/20 15:52 90 100 04/09/20 15:47 85 100 04/09/20 15:42 78 100 04/09/20 15:40 83 131/71 04/09/20 15:37 82 100 04/09/20 15:32 89 100 04/09/20 15:27 96 H 100 04/09/20 15:26 83 132/85 04/09/20 15:22 83 100 10/01/20 15:17 83 99 04/09/20 15:12 98.1 F 80 16 118/67 100 04/09/20 15:07 74 98 04/09/20 15:02 77 98 04/09/20 14:57 74 99 04/09/20 14:55 82 122/73 04/09/20 14:52 72 98 04/09/20 14:47 74 98 04/09/20 14:42 71 98 04/09/20 14:40 72 118/65 04/09/20 14:37 72 99 04/09/20 14:32 73 98 04/09/20 14:27 75 100 04/09/20 14:26 72 119/65 04/09/20 14:22 71 99 04/09/20 14:17 71 99 04/09/20 14:12 72 99 04/09/20 14:10 72 120/66 04/09/20 14:07 74 100 04/09/20 14:02 77 99 04/09/20 13:57 85 99 04/09/20 13:55 74 124/60 04/09/20 13:52 78 100 04/09/20 13:47 80 117/57 L 99 04/09/20 13:42 84 100 04/09/20 13:37 80 100 04/09/20 13:32 82 100 04/09/20 13:27 80 100 04/09/20 13:22 94 H 99 04/09/20 13:17 77 99 04/09/20 13:12 79 99 04/09/20 13:11 78 143/76 H 04/09/20 13:07 78 100 04/09/20 13:02 85 99 04/09/20 12:57 78 100 04/09/20 12:55 85 135/61 04/09/20 12:52 82 100 04/09/20 12:50 86 132/99 04/09/20 12:47 85 99 04/09/20 12:44 97 H 117/58 L 04/09/20 12:42 90 99 04/09/20 12:39 90 124/64 04/09/20 12:37 91 H 98 04/09/20 12:35 89 126/58 L 04/09/20 12:32 86 98 04/09/20 12:27 90 125/58 L 98 04/09/20 12:25 95 H 129/61 04/09/20 12:23 86 146/67 H 04/09/20 12:22 95 H 99 04/09/20 12:17 91 H 99 04/09/20 12:12 88 100 04/09/20 12:07 83 99 04/09/20 12:02 83 98 04/09/20 11:57 86 99 04/09/20 11:52 88 100 04/09/20 11:29 98.2 F 83 20 108/58 L 04/09/20 10:03 83 20 111/59 L 04/09/20 09:00 84 111/53 L 04/09/20 08:31 88 117/70 04/09/20 07:15 98.1 F 88 20 138/72 04/09/20 07:00 89 18 97 04/09/20 06:55 82 96 04/09/20 06:50 85 96 04/09/20 06:45 82 97 04/09/20 06:40 82 97 04/09/20 06:35 86 98 04/09/20 06:30 93 H 18 97 04/09/20 06:25 84 99 04/09/20 06:20 89 98 04/09/20 06:15 93 H 99 04/09/20 06:14 86 18 130/64 04/09/20 06:10 88 99 04/09/20 06:04 79 98 04/09/20 05:59 78 96 04/09/20 05:54 79 96 04/09/20 05:49 78 96 04/09/20 05:44 77 96 04/09/20 05:39 80 96 04/09/20 05:34 78 96 04/09/20 05:30 18 04/09/20 05:29 86 96 04/09/20 05:24 82 95 04/09/20 05:19 80 96 04/09/20 05:14 79 96 04/09/20 05:09 84 95 04/09/20 05:08 98.2 F 82 18 120/73 Coding Level of Care Code None Diagnoses Gestational hypertension without significant proteinuria during in third trimester, antepartum O13.3 Supervision of normal intrauterine in multigravida Z34.80
[2020-04-09] MEDS ORDERED: OXYCODONE/ACETAMINOPHEN 5mg/325mg TAB PO PRN (17:43)
[2020-04-09] MEDS ORDERED: OXYTOCIN 30 UNITS/500 ML BAG IV PRN (17:43)
--- NOTE | 2020-04-09 17:45 | Delivery Summary ---
Vaginal Delivery Summary Date of Service April 09, 2020 The patient dilated to complete and pushed to deliver a viable female Apgars 9 and 9 via over intact perineum. Patient unable to stop pushing and continued. Shoulders and body delivered with ease. Infant was vigorous and crying at . Cord clamped at 30 seconds of life and infant to maternal abdomen where the cord was then doubly clamped and cut. Placenta delivered spontaneously and intact, three-vessel cord. Hemostasis achieved with dilute pitocin and uterine massage and drainage of the bladder for approximately 300 cc under sterile conditions. Cervix and sulci intact. EBL 300 cc. Mother and baby stable recovery. [facility] Vaginal Delivery Charge Vaginal Delivery Codes: 58542 global code for the antepartum, delivery, and post-
[2020-04-09] MEDS ORDERED: BENZOCAINE 20% AER SPR 82.5 GM CAN EXT PRN (17:56)
[2020-04-09] MEDS ORDERED: DIPHTHERIA/TETANUS/PERTUSSIS 0.5 ML SYR/VIAL IM ONE (17:56)
[2020-04-09] MEDS ORDERED: HYDROCORTISONE ACETATE 25 MG SUPP PR PRN (17:56)
[2020-04-09] MEDS ORDERED: SUPERCREAM 0.870% 15 GM JAR EXT PRN (17:56)
[2020-04-09] MEDS: OXYTOCIN 20 UNITS in LACTATED RINGER'S 1,000 ML IV SCH (18:21)
--- NOTE | 2020-04-09 18:56 | Anesthesia Procedure Note ---
Date of Service April 09, 2020 Anesthesia Post Epidural Note Vital Signs Vital Signs: Temp Pulse Resp BP Pulse Ox 36.8 C 84 20 127/62 99 04/09/20 16:41 04/09/20 18:27 04/09/20 16:41 04/09/20 18:27 04/09/20 17:32 Pain Intensity Bilateral Abdomen: Pain Intensity: 6 Notes Mental Status: alert / awake / arousable Nausea / Vomiting: adequately controlled Pain: adequately controlled Airway Patency, RR, SpO2: stable & adequate BP & HR: stable & adequate Hydration State: stable & adequate Neuraxial Anesthesia: was administered and sensory block is resolving Anesthetic Complications: no major complications apparent and Pt Satisfied with anesthetic care Epidural: Removed without complications and With tip intact
[2020-04-09] MEDS ORDERED: CALCIUM CARBONATE 500 MG CHEWABLE TAB PO PRN (20:56)
[2020-04-09] MEDS ORDERED: CALCIUM CARBONATE 500 MG CHEWABLE TAB ONE (21:11)
[2020-04-09] MEDS: DOCUSATE SODIUM 100 MG CAP PO SCH (21:16)
[2020-04-09] MEDS: IBUPROFEN 600 MG TAB PO PRN (23:42)
[2020-04-10] MEDS: OXYTOCIN 20 UNITS in LACTATED RINGER'S 1,000 ML IV SCH (05:20)
--- NOTE | 2020-04-10 05:27 | Obstetrical Progress Note ---
Date of Service April 10, 2020 Assessment & Plan (1) : S/p Day 1 - Feels well today. Eating well, voiding well, ambulating well. - Pain well-controlled with ibuprofen 600mg Q4H PRN. - Vital signs reviewed and WNL. - Hemoglobin reviewed. 11.4 (pre-) - Blood Type: A- (s/p Rhogam at 28 weeks), antibody negative, GBS negative, Rubella Immune, COVID-19 negative - Continue routine post- care: encourage ambulation, monitor and control pain with Motrin PRN, continue regular OB diet, monitor lochia - Encourage breast feeding. - Pt counselled on discharge instructions today - After discharge, will have 6-wk follow-up with Dr. Wright Admission and Anticipated Discharge Date Admission Date: April 08, 2020 Subjective HPI Holly Inman is a 29 y/o female who is PPD 1 spontaneous vaginal delivery at 37 6/7 weeks. She reports feeling well overall this morning. No abdominal cramping and [_]/10 pain well managed on analgesics. Voiding well. Tolerating meals overnight without difficulty. Patient has been able to ambulate some. passing gas and no bowel movement. Has persistent lochia with some improvement this morning. Currently bottle-feeding with formula. Patient's sister is adopting the baby. Review of Systems Review of Systems: ROS Denies fever or chills. Denies shortness of breath or cough. Denies chest pain. Denies breast pain. Denies dysuria. Denies leg pain or leg swelling. Physical Exam Physical Exam: General: Alert, oriented. No acute distress. Cardiac: Regular rate and rhythm. No murmurs. Respiratory: Clear to auscultation bilaterally a/p, no wheezes/rales/rhonchi. No increased work of breathing. Symmetrical chest rise. No respiratory distress. Abdomen: Soft, nontender, nondistended. Bowel sounds present. Uterus: Uterine fundus firm, palpable at umbilicus. Lower Extremities: No lower extremity edema or swelling. No deep calf pain. Mignon's negative bilaterally. Results & Data ([facility]) Vital Signs (Past 12 Hours) Vital Signs Temp Pulse Pulse Resp BP BP Pulse Ox 04/09/20 23:30 36.8 C 90 18 125/82 04/09/20 19:53 85 131/65 04/09/20 19:45 18 04/09/20 19:21 85 127/85 04/09/20 19:15 36.8 C 16 04/09/20 18:27 84 127/62 04/09/20 18:12 97 H 131/66 04/09/20 17:57 86 122/56 L 04/09/20 17:42 94 H 122/65 04/09/20 17:32 82 99 04/09/20 17:27 102 H 100 Resident Activity Tracking Resident Involvement: Resident Care Provided Care Provided: OB Delivery
[2020-04-10] MEDS: IBUPROFEN 600 MG TAB PO PRN ×3 (06:31→15:01)
--- NOTE | 2020-04-10 06:44 | Obstetrical Progress Note ---
Date of Service April 10, 2020 Assessment & Plan (1) Normal delivery: (2) Gestational hypertension without significant proteinuria during in third trimester, antepartum: stable, routine care, bps stable. desires d/c home today. instructions reviewed. needs 6wk pp check. Day #:: 1 Subjective Ambulation: ambulating normally Voiding: no voiding problems Diet Tolerance:: regular diet Lochia:: Small Feeding Type:: bottle feeding cramping alot, did use pain meds through the night and heating pad but feels more pain now. Physical Exam Constitutional WD/WN, vitals as above Respiratory normal respiratory effort, lungs clear to auscultation Cardiovascular Rate/Rhythm: regular rate and regular rhythm Gastrointestinal (Abdomen) Inspection/Auscultation: abdomen normal to inspection Percussion/Palpation: abdomen soft; abdomen nontender Fundus firm 2cm down Musculoskeletal nt calves tr edema Neurologic grossly normal Psychiatric A+Ox3, euthymic affect Results & Data ([facility]) Vital Signs (Past 12 Hours) Vital Signs Temp Pulse Pulse Resp BP BP 04/10/20 03:45 98.1 F 76 16 120/81 04/09/20 23:30 98.2 F 90 18 125/82 04/09/20 19:53 85 131/65 04/09/20 19:45 18 04/09/20 19:21 85 127/85 04/09/20 19:15 98.2 F 16
[2020-04-10] MEDS: DOCUSATE SODIUM 100 MG CAP PO SCH (07:33)
[2020-04-10] MEDS: ACETAMINOPHEN 325 MG TAB PO PRN ×2 (07:33→13:42)
--- NOTE | 2020-04-10 08:04 | Medical Student Progress Note ---
Date of Service April 10, 2020 Assessment & Plan Admission and Anticipated Discharge Date Admission Date: April 08, 2020 1. 1 day post-vaginal delivery 2. Gestational HTN: Blood pressures are currently stable (120/81) 3. Hx of psychosis. Working with psychiatry for prevention. 4. Would like to be d/c today. Will follow-up with OB in 6 weeks. Subjective Holly Carrasquillo 29 y/o who is 1 day post- at 37 6/7 weeks. She presented to the ED two days ago for SOB and evaluated for possible PE. She developed gestational diabetes during her hospital course and was induced. She is GBS -, Rubella Immune, COVID - Her blood type is A - (RhoGAM at 28 weeks). Baby's blood type is A+. She is Antibody - HPI Holly is generally doing well. She is experiencing some abdominal cramping that has not been relieved with ibuprofen. She is ambulating, eating, voiding, and passing gas well. She has not had a bowel movement. Her lochia is decreasing. She is not . Her mood currently is good. 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 She expressed interest in getting discharged. ROS No headache, fever/chills, chest pain, SOB, or lower extremity pain. +Swelling of hands and lower extremities +Abdominal cramping Physical Exam Physical Exam: Fundus palpated at the umbilicus and firm. Lung, heart, and abdominal sounds are normal. No lower extremity pitting edema or deep calf tenderness. Mignon's negative bilaterally. Results & Data ([facility]) Vital Signs (Past 12 Hours) Vital Signs Temp Pulse Pulse Resp BP BP Pulse Ox 04/10/20 03:45 36.7 C 76 16 120/81 04/09/20 23:30 36.8 C 90 18 125/82 04/09/20 19:53 85 131/65 04/09/20 19:45 18 04/09/20 19:21 85 127/85 04/09/20 19:15 36.8 C 16 04/09/20 18:27 84 127/62 04/09/20 18:12 97 H 131/66 04/09/20 17:57 86 122/56 L 04/09/20 17:42 94 H 122/65 04/09/20 17:32 82 99 04/09/20 17:27 102 H 100 04/09/20 17:22 111 H 100 04/09/20 17:17 98 H 99 04/09/20 17:12 91 H 100 04/09/20 17:11 86 124/68 04/09/20 17:07 83 100 04/09/20 17:02 85 100 04/09/20 16:57 88 100 04/09/20 16:55 88 109/65 04/09/20 16:52 81 100 04/09/20 16:47 85 100 04/09/20 16:42 88 100 04/09/20 16:41 36.8 C 89 20 122/71 04/09/20 16:37 102 H 100 04/09/20 16:32 82 100 04/09/20 16:27 79 100 04/09/20 16:26 84 110/59 L 04/09/20 16:22 82 100 04/09/20 16:17 88 100 04/09/20 16:12 84 100 04/09/20 16:10 80 120/61 04/09/20 16:07 76 100 04/09/20 16:02 74 100 04/09/20 15:57 79 99 04/09/20 15:55 81 120/60 04/09/20 15:52 90 100 04/09/20 15:47 85 100 04/09/20 15:42 78 100 04/09/20 15:40 83 131/71 04/09/20 15:37 82 100 04/09/20 15:32 89 100 04/09/20 15:27 96 H 100 04/09/20 15:26 83 132/85 04/09/20 15:22 83 100 04/09/20 15:17 83 99 04/09/20 15:12 36.7 C 80 16 118/67 100 04/09/20 15:07 74 98 04/09/20 15:02 77 98 04/09/20 14:57 74 99 04/09/20 14:55 82 122/73 04/09/20 14:52 72 98 04/09/20 14:47 74 98 04/09/20 14:42 71 98 04/09/20 14:40 72 118/65 04/09/20 14:37 72 99 04/09/20 14:32 73 98 04/09/20 14:27 75 100 04/09/20 14:26 72 119/65 04/09/20 14:22 71 99 04/09/20 14:17 71 99 04/09/20 14:12 72 99 04/09/20 14:10 72 120/66 04/09/20 14:07 74 100 04/09/20 14:02 77 99 04/09/20 13:57 85 99 04/09/20 13:55 74 124/60 04/09/20 13:52 78 100 04/09/20 13:47 80 117/57 L 99 04/09/20 13:42 84 100 04/09/20 13:37 80 100 04/09/20 13:32 82 100 04/09/20 13:27 80 100 04/09/20 13:22 94 H 99 04/09/20 13:17 77 99 04/09/20 13:12 79 99 04/09/20 13:11 78 143/76 H 04/09/20 13:07 78 100 04/09/20 13:02 85 99 04/09/20 12:57 78 100 04/09/20 12:55 85 135/61 04/09/20 12:52 82 100 04/09/20 12:50 86 132/99 04/09/20 12:47 85 99 04/09/20 12:44 97 H 117/58 L 04/09/20 12:42 90 99 04/09/20 12:39 90 124/64 04/09/20 12:37 91 H 98 04/09/20 12:35 89 126/58 L 04/09/20 12:32 86 98 04/09/20 12:27 90 125/58 L 98 04/09/20 12:25 95 H 129/61 04/09/20 12:23 86 146/67 H 04/09/20 12:22 95 H 99 04/09/20 12:17 91 H 99 04/09/20 12:12 88 100 04/09/20 12:07 83 99 04/09/20 12:02 83 98 04/09/20 11:57 86 99 04/09/20 11:52 88 100 04/09/20 11:29 36.8 C 83 20 108/58 L 04/09/20 10:03 83 20 111/59 L 04/09/20 09:00 84 111/53 L Laboratory Results Hemoglobin: 11.4 (1 day before delivery)
--- NOTE | 2020-04-15 11:52 | Discharge Summary ---
Date of Service Date of admission: April 08, 2020 Date of discharge: April 10, 2020 Discharge Data Consultations 04/08/20 19:17 Consult Anesthesiology Stat Hospital Course (1) Gestational hypertension: (2) Obesity affecting , antepartum: (3) 37 weeks gestation of : 29yo at 37+weeks WINSOME who was admitted to our service with diagnoses of gestational hypertension for induction of labor. It is significant to note that prior to our admission the patient was seen in ER and then hospitalized for symptoms of palpitations and shortness of breath. She was evaluated and managed by the hospitalists and was stable for discharge from their service, but due to diagnosis of gestational hypertension was brought to L&D for induction. She underwent cervical ripening with cytotec and then at first was thought to have spontaneous rupture of membranes but later was evaluated and that was not the case. By then pitocin had been started. Given that membranes were not ruptured upon evaluation a dao ripening balloon was placed and pitocin was continued. She dilated to complete and pushed to deliver via normal vaginal delivery, please see vaginal delivery note for details. Her cours was uncomplicated and she was stable for discharge home on day #1. Instructions were reviewed and followup at 6wks was planned. Coding Level of Care Code None Diagnoses Gestational hypertension O13.9 Obesity affecting , antepartum O99.210 37 weeks gestation of Z3A.37
== END 2020-04-10 18:50 | disposition home or self-care (01) | DRG 807 ==
LOC: 2S 15:38 → ED 15:38 → SUATTDRO 22:32 → 2S 23:56 → 4S1 04-08 13:51 → 4S2 04-09 20:15